=== PATIENT | female | born 1955 | race Hispanic/Latino ===

== ENCOUNTER → 2018-09-30 | Outpatient (CLI) | payer OTHER ==
[~2018-09-30] MED LIST: ATOR10 PO; CALC-322 PO; IOHEXOL 350 MG/ML 100ML INFUS..BTL IV ONE; LOSA50TA64 PO
== END | disposition home or self-care (01) ==
LOC: RAH 16:26
PROVIDERS: ATTEND Internal Medicine
DX: I51.7 Cardiomegaly (principal); R06.02 Shortness of breath
CPT/HCPCS: 71275; Q9967

== ENCOUNTER 2021-08-14 06:09 | Day surgery (SDC) | payer OTHER ==
[~2021-08-14 06:09] MED LIST changes: +AMLO-257 PO; -ATOR10 PO; +ATOR40TA69 PO; -CALC-322 PO; -IOHEXOL 350 MG/ML 100ML INFUS..BTL IV ONE; +LEVO50CA4 PO; +LOSA100T58 PO; -LOSA50TA64 PO; +METO-408 PO; +OMEP40CA21 PO; +SUCR1TAB2 PO
[2021-08-14] MEDS ORDERED: 0.9%NACL 1000ML 1,000 ML IV ONE (06:19)
[2021-08-14 06:45] VITALS: BP 187/88
[2021-08-14] MEDS ORDERED: PROPOFOL 10 MG/ML 20ML VIAL IV ONE ×2 (08:02→08:34)
[2021-08-14 08:50] VITALS: BP 104/65
[2021-08-14 08:56] VITALS: BP 120/73
[2021-08-14 09:01] VITALS: BP 133/70
[2021-08-14 09:08] VITALS: BP 131/72
== END 2021-08-14 09:15 | disposition home or self-care (01) ==
LOC: ENDO 06:09 → DAH 06:09 → ENDO 09:15
PROVIDERS: ATTEND Internal Medicine Gastroenterology
DX: Z12.11 Encounter for screening for malignant neoplasm of colon (principal); Z20.822 Contact with and (suspected) exposure to COVID-19; K56.2 Volvulus; K21.00 Gastro-esophageal reflux disease with esophagitis, without bleeding; I10 Essential (primary) hypertension; E03.9 Hypothyroidism, unspecified; E78.2 Mixed hyperlipidemia; E66.9 Obesity, unspecified; Z98.890 Other specified postprocedural states; Z90.710 Acquired absence of both cervix and uterus; Z72.89 Other problems related to lifestyle; Z86.010 Personal history of colon polyps; Z68.38 Body mass index [BMI] 38.0-38.9, adult
CPT/HCPCS: 87635; A4215 ×2; A4221; A4222; A4223; A4606; A4620; A4663; C9803; G0105; J2704 ×2; J7030; 45378

== ENCOUNTER → 2022-09-27 | Outpatient (CLI) | payer OTHER | END | disposition home or self-care (01) | LOC: RAH 13:28 | PROVIDERS: ATTEND Internal Medicine | DX: R42 Dizziness and giddiness (principal); W19.XXXA Unspecified fall, initial encounter | CPT/HCPCS: 70450 ==

== ENCOUNTER → 2022-11-29 | Outpatient (CLI) | payer OTHER | END | disposition home or self-care (01) | LOC: RAH 12:17 | PROVIDERS: ATTEND Internal Medicine | DX: I83.813 Varicose veins of bilateral lower extremities with pain (principal); M79.604 Pain in right leg | CPT/HCPCS: 93971 ==

== ENCOUNTER → 2024-09-12 | Outpatient (CLI) | payer OTHER ==
[~2024-09-12] MED LIST changes: -LOSA100T58 PO; +LOSA100T59 PO
[2024-09-12 22:03] VITALS: PULSE 64; RESP 14
[2024-09-12 22:30] VITALS: PULSE 64; RESP 16
[2024-09-12 23:00] VITALS: PULSE 70; RESP 14
[2024-09-12 23:30] VITALS: PULSE 64; RESP 12
[2024-09-13] VITALS (10 sets, daily range): PULSE 60–72; RESP 12–16
--- NOTE | 2024-09-13 03:42 | NUR ---
LOSARTAN 100 MG, AMLODIPINE 5 MG Addendum: 09/13/24 at 0344 by VERONICA CARVAJAL Amended: Links added.
== END | disposition home or self-care (01) ==
LOC: SLP 20:23
PROVIDERS: ATTEND Nurse Practitioner Family
DX: G47.33 Obstructive sleep apnea (adult) (pediatric) (principal); R40.0 Somnolence; I10 Essential (primary) hypertension; I25.9 Chronic ischemic heart disease, unspecified
CPT/HCPCS: 95810

== ENCOUNTER → 2024-09-19 | Outpatient (CLI) | payer OTHER ==
[2024-09-19 21:37] VITALS: PULSE 64; RESP 16
[2024-09-19 22:30] VITALS: PULSE 62; RESP 10
[2024-09-19 23:00] VITALS: PULSE 60; RESP 10
[2024-09-19 23:30] VITALS: PULSE 64; RESP 12
[2024-09-20] VITALS (9 sets, daily range): PULSE 60–68; RESP 10–12
== END | disposition home or self-care (01) ==
LOC: SLP 20:23
PROVIDERS: ATTEND Nurse Practitioner Family
DX: G47.33 Obstructive sleep apnea (adult) (pediatric) (principal); R40.0 Somnolence
CPT/HCPCS: 95811

== ENCOUNTER → 2024-11-29 | Outpatient (CLI) | payer OTHER ==
[~2024-11-29] MED LIST changes: -LEVO50CA4 PO; +LEVO50CA5 PO
== END | disposition home or self-care (01) ==
LOC: SHCH 11:04
PROVIDERS: ATTEND Internal Medicine Cardiovascular Disease
DX: I08.3 Combined rheumatic disorders of mitral, aortic and tricuspid valves (principal); I10 Essential (primary) hypertension
CPT/HCPCS: 93306